=== PATIENT | female | born 1940 | race Hispanic/Latino ===

== ENCOUNTER 2016-10-10 09:28 | Outpatient (CLI) | payer MEDICARE, OTHER ==
--- NOTE | 2016-10-10 12:04 | Mammography Report ---
BONE DEXA:10/10/16 09:28:00 CLINICAL: Postmenopausal. COMPARISON: 04/08/14 TECHNIQUE: Two site bone DEXA performed on an Hologic scanner. FINDINGS: The average BMD of the lumbar spine L1-L4 is 0.863g/cm squared with a T-score of -1.7 and a Z-score of +0.7. This compares to 0.850g/cm squared on the last exam and represents a +1.5% change from the previous baseline. The average BMD of the left hip is 0.89g/cm squared with a T-score of -0.9 and a Z-score of by 0.8. This compares to 0.740g/cm squared on the last exam and represents a +12.0% change from the previous baseline. IMPRESSION: 1. WHO classification: Osteopenia with increased fracture risk based on both spine and left hip measurements. 2. A slight improvement in spine BMD compared to the previous exam and a marked improvement in left hip BMD compared to the previous exam. RECOMMENDATION: Clinical correlation and routine screening. DEFINITIONS: BMD = Bone Mineral Density T-score = BMD related to mean peak bone mass of young adult (mean expressed in Standard Deviation) Z-score = Age matched BMD expressed in SD World Health Organization (WHO) Diagnostic Criteria Normal T-score > -1 SD Osteopenia T-score between -1 and -2.4 SD Osteoporosis T-score -2.5 SD or below NOTE: BMD is not the only risk factor for fracture; also consider factors such as the patient's age, risk of falling, previous osteoporotic fracture, family history of osteoporotic fractures, current smoker, and low body weight. Z-scores are not calculated if >80 years of age.
--- NOTE | 2016-10-10 13:02 | Mammography Report ---
BILATERAL DIGITAL SCREENING MAMMOGRAM with CAD: 10/10/16 09:28:00 CLINICAL: Routine screening. COMPARISON:04/08/14 FINDINGS: The breasts are heterogeneously dense, which may obscure small masses.New right outer calcifications require additional workup. T On view suggests a possible circumscribed mass in association with the calcifications. No architectural distortion. The left breast is negative. IMPRESSION: Right calcifications and possible mass requiring further workup. BI-RADS CATEGORY: 0 -- Additional Imaging Evaluation Required RECOMMENDATION: Recall for right mediolateral , spot magnification ML and CC views and right breast ultrasound. ACR BI-RADS MAMMOGRAPHIC CODES: 0 = Needs additional imaging evaluation; 1 = Negative; 2 = Benign; 3 = Probably benign; 4 = Suspicious; 5 = Malignant; 6 = Known biopsy-proven malignancy COMMENT: 1. Dense breast tissue, i.e., adenosis, fibrocystic changes, etc., may obscure an underlying neoplasm. 2. Approximately 10% of cancers are not detected with mammography. 3. A negative mammography report should not delay biopsy if a clinically suspicious mass is present. COMMENT: Patient follow-up letters are generated via our [employer] application.
== END 2016-10-10 09:29 | disposition home or self-care (01) ==
LOC: SPVWC 09:28
PROVIDERS: ATTEND Family Medicine
DX: Z12.31 Encounter for screening mammogram for malignant neoplasm of breast (principal); M85.88 Other specified disorders of bone density and structure, other site; Z78.0 Asymptomatic menopausal state
CPT/HCPCS: 77080; G0202; 77067

== ENCOUNTER 2016-10-24 08:40 | Outpatient (CLI) | payer MEDICARE, OTHER ==
--- NOTE | 2016-10-24 09:25 | Mammography Report ---
Diagnostic right mammogram. History: Recall for new right calcifications. Findings: Spot compression magnification images of the right calcifications demonstrates a tight cluster of pleomorphic microcalcifications with no definite associated mass. Impression: New right pleomorphic microcalcifications. BI-RADS code: 4. Recommendation: Biopsy. These would be amenable to stereotactic biopsy. Comment: These findings were discussed in detail with the patient and her referring physician.
== END 2016-10-24 08:41 | disposition home or self-care (01) ==
LOC: SPVWC 08:40
PROVIDERS: ATTEND Family Medicine
DX: R92.0 Mammographic microcalcification found on diagnostic imaging of breast (principal)
CPT/HCPCS: G0206-RT

== ENCOUNTER 2016-11-02 15:10 | Outpatient (CLI) | payer MEDICARE, OTHER | END 2016-11-02 15:11 | disposition home or self-care (01) | LOC: LABHHL 15:10 | PROVIDERS: ATTEND Surgery | DX: R92.0 Mammographic microcalcification found on diagnostic imaging of breast (principal) | CPT/HCPCS: 88305 ==

== ENCOUNTER 2017-07-05 11:00 | Outpatient (CLI) | payer MEDICARE, OTHER ==
--- NOTE | 2017-07-05 11:55 | Ultrasound Report ---
LEFT BREAST ULTRASOUND: 07/05/17 11:00:00 CLINICAL: Palpable lump left breast. Negative mammogram. COMPARISON: 06/07/17 mammogram. FINDINGS: Ultrasound of the left breast was performed in the area where the patient describes a palpable lump at 2 o'clock 5 cm from the nipple.It demonstrates normal fibroglandular structures with no mass, cyst or shadowing. IMPRESSION: Negative targeted left breast ultrasound. BI-RADS 1 - - Negative RECOMMENDATION: Clinical followup and routine mammographic screening..
== END 2017-07-05 11:01 | disposition home or self-care (01) ==
LOC: SPVWC 11:00
PROVIDERS: ATTEND Surgery
DX: N63.20 Unspecified lump in the left breast, unspecified quadrant (principal)